=== PATIENT | female | born 1970 | race Caucasian/White ===

== ENCOUNTER 2022-11-05 12:04 | Emergency (ER) | payer SELFPAY ==
[2022-11-05] MEDS ORDERED: Ketorolac Tromethamine 30 MG/ML VIAL ONE (12:25)
[2022-11-05] MEDS ORDERED: Orphenadrine Citrate 60 MG/2 ML VIAL ONE (12:25)
[2022-11-05] MEDS ORDERED: HYDROcodone/Acetaminophen 5/325 mg Tablet ONE (12:26)
== END 2022-11-05 13:30 | disposition home or self-care (01) ==
LOC: ERS 12:04
DX: M62.838 Other muscle spasm (principal)
CPT/HCPCS: 96372; 99283; J1885; J2360

== ENCOUNTER 2023-10-22 11:06 | Emergency (ER) | payer SELFPAY ==
[2023-10-22] MEDS ORDERED: Ketorolac Tromethamine 30 MG (1 mL) VIAL ONE (11:33)
[2023-10-22] MEDS ORDERED: Dexamethasone 10 MG/ML VIAL ONE (11:34)
== END 2023-10-22 12:29 | disposition home or self-care (01) ==
LOC: ERS 11:06
DX: M54.12 Radiculopathy, cervical region (principal); F17.210 Nicotine dependence, cigarettes, uncomplicated
CPT/HCPCS: 96372; 99282; J1100; J1885